=== PATIENT | female | born 1950 | race Caucasian/White ===

== ENCOUNTER 2024-02-25 09:46 | Emergency (ER) | payer MEDICARE, BC, SELFPAY ==
[2024-02-25 09:50] VITALS: BP 128/68; PULSE 60; RESP 16; TEMP 36.2; O2SAT 100; BMI 24.6
--- NOTE | 2024-02-25 10:06 | CT_ITS ---
Patient: LEONIE ANN Facility:?[facility] Patient ID:?[id number] Site Patient ID:?[id number]. Site :?1950 Study:?CT-Abdomen/Pelvis WO-02/25/2024 10:34:39 AM Ordering Physician:EZ Final Report: INDICATION: Injury. Pain. COMPARISON: None TECHNIQUE: CT examination of the abdomen and pelvis was performed without intravenous contrast. Thin section axial images were obtained from the lung bases through the pubic symphysis. Oral contrast was not administered. Please note that all CT scans at this facility use dose modulation, iterative reconstruction, and/or weight-based dosing when appropriate to reduce radiation dose to as low as reasonably achievable. FINDINGS: LUNG BASES: The lung bases are unremarkable.The heart size is normal at the lung bases. Incidental breast implants noted. LIVER/BILIARY SYSTEM:The liver is normal in size and configuration given the lack of intravenous contrast. There is no visible focal mass and there is no intra- or extra hepatic biliary ductal dilatation.The gall bladder appears normal. ADRENALS: Normal non-contrast appearance KIDNEYS, URETERS and BLADDER:Normal size kidneys. No intrarenal calculi. Mildly prominent right ureter but no alyx hydronephrosis. Calcifications in the right flank are probably vascular. The bladder appears normal. SPLEEN:Normal non-contrast appearance. PANCREAS: Fatty infiltrated but otherwise unremarkable RETROPERITONEUM and MESENTERY: There is no mass, adenopathy or aortic aneurysm. Atherosclerotic vascular calcification GASTROINTESTINAL SYSTEM: There is no evidence of diverticulitis, colitis, mechanical obstruction, or appendicitis. The small bowel as visualized appears normal.Mild diffuse fecal retention and scattered diverticulosis PELVIS: No mass, adenopathy or free fluid. OSSEOUS STRUCTURES and ABDOMINAL WALL: There is no acute appearing osseous finding. There are degenerative changes.No significant abdominal wall abnormality. OTHER: No free fluid or free air. IMPRESSION: 1. No solid organ injury and no acute abdominal or pelvic posttraumatic findings within the limitation of noncontrast study. 2. No acute osseous injury. 3. Incidental nonacute/nontraumatic findings as discussed in the body of the report Please note that all CT scans at this facility use dose modulation, iterative reconstruction, and/or weight-based dosing when appropriate to reduce radiation dose to as low as reasonably achievable. Dictated by Cedrick Issa MD @ 02/25/2024 10:49:13 AM Signed by:?Cedrick Issa MD @02/25/2024 10:49:13 AM (Electronic Signature)
--- NOTE | 2024-02-25 10:06 | CT_ITS ---
Patient: LEONIE ANN Facility:?[facility] Patient ID:?[id number] Site Patient ID:?[id number]. Site :?1950 Study:?CT-Facial WO-02/25/2024 10:36:41 AM Ordering Physician:EZ Final Report: INDICATION: Fall TECHNIQUE: CT of the face and paranasal sinuses was performed without IV contrast. COMPARISON: None. FINDINGS: Bones: Normal. Orbits: Normal. Paranasal sinuses: Clear. Mastoid air cells: Clear. Soft tissues: Normal. Visualized brain: Normal. Additional comments: None. IMPRESSION: No acute facial fractures. Please note that all CT scans at this facility use dose modulation, iterative reconstruction, and/or weight-based dosing when appropriate to reduce radiation dose to as low as reasonably achievable. Dictated by Laureano Cox MD @ 02/25/2024 10:52:48 AM Signed by:?Laureano Cox MD @02/25/2024 10:52:48 AM (Electronic Signature)
--- NOTE | 2024-02-25 10:07 | CT_ITS ---
Patient: LEONIE ANN Facility:?[facility] Patient ID:?[id number] Site Patient ID:?[id number]. Site :?1950 Study:?CT-Head WO-02/25/2024 10:36:07 AM Ordering Physician:EZ Final Report: INDICATION: Fall TECHNIQUE: CT of the head was performed without IV contrast. COMPARISON: None. FINDINGS: Parenchyma: No acute hemorrhage, infarction, or mass. Mild scattered periventricular white matter hypoattenuation is nonspecific and is favored to represent chronic small vessel ischemic disease. Ventricles and extra-axial spaces: Appropriate for age. Visualized paranasal sinuses: Clear. Mastoid air cells: Clear. Bones: No focal abnormality. Additional comment: Bilateral lens surgery. IMPRESSION: No acute intracranial abnormality. Please note that all CT scans at this facility use dose modulation, iterative reconstruction, and/or weight-based dosing when appropriate to reduce radiation dose to as low as reasonably achievable. Dictated by Laureano Cox MD @ 02/25/2024 10:47:13 AM Signed by:?Laureano Cxo MD @02/25/2024 10:47:13 AM (Electronic Signature)
--- NOTE | 2024-02-25 10:08 | ED_ITS ---
HPI - General Adult General Chief complaint: Abdominal Pain Stated complaint: fall- 2 days ago Time Seen by Provider: 02/25/24 09:47 History of Present Illness HPI narrative: PATIENT IS A 70-YEAR-OLD FEMALE THAT SHE SLIPPED ON A CHILD'S TOY ABOUT 2 DAYS AGO AND FELL FORWARD ON HER FACE SHE HIT HER FOREHEAD HAD A SMALL BUMP BETWEEN HER BROW SHE HAS NASAL TENDERNESS AND SOME MILD MAXILLARY SINUS DISCOMFORT. SHE HAS HAD NO TROUBLE WITH DENTAL OCCLUSION OR FUNCTION OF HER JAW. SHE HAS NO NECK PAIN. SHE DID NOT LOSE CONSCIOUSNESS OR HAVE VOMITING OR NAUSEA. The patient also reports that when she lies down at night she has significant pain in her epigastrium and seems to radiate through to her back this is only since her fall. She did slightly hyperextends her abdomen and abdominal wall musculature, and certainly could be from that. But is typically worse when she lies down she gets up and walks around she gets this ?spasm? feeling in her abdomen that radiates from her upper right and left quadrants to the middle periumbilical area. She has been able to walk without difficulty no pelvis hip or leg symptoms no upper extremity symptoms. Related Data Home Medications Medication Instructions Recorded Confirmed estradiol 0.01% (0.1 mg/gram) vaginal 02/25/24 vaginal cream levothyroxine 50 mcg tablet 50 mcg PO QAM 02/25/24 02/25/24 minoxidil 2.5 mg tablet 1.25 mg PO DAILY 02/25/24 02/25/24 montelukast 10 mg tablet 10 mg PO DAILY 02/25/24 02/25/24 omeprazole 40 mg capsule,delayed 40 mg PO BID 02/25/24 02/25/24 release rosuvastatin 40 mg tablet 40 mg PO QAM 02/25/24 02/25/24 tirzepatide 10 mg/0.5 mL 10 mg subcut 02/25/24 subcutaneous pen injector (Aman) Allergies Allergy/AdvReac Type Severity Reaction Status Date / Time iodine Allergy Unknown Verified 02/25/24 10:00 Review of Systems Status of ROS: Reports: 6 or more systems reviewed and unremarkable except as noted in History and below PFSH PFSH Social History Smoking Status: Never smoker How often do you have a drink containing alcohol: never How often do you have six or more drinks on one occasion: Never AUDIT-C Alcohol total score: 0 Non-prescribed substance use: denies use Exam Narrative: Exam Narrative: Objective: Patient's vital signs are within normal limits She is alert orient x3 HEENT shows a small bruise between her eyebrows on more right than left-sided on her brow. No palpable step-off in that area Pupils react to light extra movements intact No facial asymmetry Neck is nontender non tender on range of motion, the patient has full range of motion of her cervical spine Chest back abdomen unremarkable to palpation no palpable tenderness no rebound in her abdomen no palpable masses The patient is ambulatory Lower extremities has full range of motion Const: Vital Signs, click to edit/add: Vital Signs - 24 hr 02/25/24 09:50 Temperature 97.1 F L Pulse Rate [Pulse Oximeter] 60 Respiratory Rate 16 Blood Pressure [Ri ght Upper Arm] 128/68 Pulse Oximetry 100 Oxygen Delivery Me thod Room Air Course Vital Signs Vital signs: Initial Vital Signs Temperature 97.1 F L 02/25/24 09:50 Temperature Source Temporal Artery Scan 02/25/24 09:50 Pulse Rate 60 02/25/24 09:50 Respiratory Rate 16 02/25/24 09:50 Blood Pressure 128/68 02/25/24 09:50 Blood Pressure Mean 88 02/25/24 09:50 Blood Pressure Position Sitting 02/25/24 09:50 Pulse Oximetry 100 02/25/24 09:50 Oxygen Delivery Method Room Air 02/25/24 09:50 Vital Signs Temperature 97.1 F L 02/25/24 09:50 Pulse Rate 60 02/25/24 09:50 Respiratory Rate 16 02/25/24 09:50 Blood Pressure 128/68 02/25/24 09:50 Pulse Oximetry 100 02/25/24 09:50 Oxygen Delivery Method Room Air 02/25/24 09:50 Temperature 97.1 F L 02/25/24 09:50 Pulse Rate 60 02/25/24 09:50 Respiratory Rate 16 02/25/24 09:50 Blood Pressure 128/68 02/25/24 09:50 Pulse Oximetry 100 02/25/24 09:50 Oxygen Delivery Method Room Air 02/25/24 09:50 Medications Administered Medications: Discontinued Medications Generic Name Dose Route Start Last Admin Trade Name Freq PRN Reason Stop Dose Admin Sodium Chloride 500 mls @ 500 mls/hr 02/25/24 10:06 02/25/24 11:50 0.9 % Sodium Chloride 500 Ml IV 02/25/24 11:05 Infused .Q1H ONE Infusion Medical Decision Making MDM Narrative Medical decision making narrative: [age] white female who fell 2 days ago with some epigastric spasm, and sats nasal tip bridge tenderness and forehead injury. I think it be reasonable at this point to do a CT scan of her head and facial bones rule out fracture. She has had no loss conscious no vomiting. She does have this unusual epigastric area pain and spasm feeling especially in she lies down at night. She does not describe reflux symptoms. She has not had this prior to the fall. At the be appropriate to rule out intra-abdominal hematoma, rectus strain or hematoma, organ injury, so the patient will get a CT scan without contrast or abdomen pelvis. Will also check labs, started IV, disposition pending findings above. Addendum 11:13 a.m. the patient's head CT is negative as well as her facial bone CT, her abdominal and pelvic CT scan without contrast is negative as well, no evidence of vascular or organ injury. The patient's lab studies look reassuring. I think she can be discharged home. Will discuss with her which she was due for pain management I think it would be reasonable to use Tylenol and Advil for couple of days light activity, ice to her abdominal area and a recheck as needed with regular doctor next 2-3 days. Lab Data Labs: Lab Results 02/25/24 Range/Units 10:15 WBC 6.55 (4.50-11.00) K/uL RBC 3.64 L (4.00-5.20) m/uL Hgb 11.6 L (12.0-16.0) gm/dL Hct 34.0 (33.0-51.0) % MCV 93 (80-100) fL MCH 32 (26-34) pg MCHC 34 (32-36) gm/dL RDW Coeff of Reuben 12.9 (11.5-15.5) % Plt Count 337 (140-440) K/uL Neut % (Auto) 66.7 (42.0-72.0) % Lymph % (Auto) 22.3 (20-44) % [place] % (Auto) 7.5 (0.0-11.0) % Eos % (Auto) 2.7 (0.0-7.0) % Baso % (Auto) 0.8 (0.0-3.0) % Neut # (Auto) 4.37 (1.7-7.0) K/uL Lymph # (Auto) 1.46 (0.90-2.90) K/uL [place] # (Auto) 0.50 (0.00-0.90) K/UL Eos # (Auto) 0.18 (0.00-0.50) K/uL Baso # (Auto) 0.05 (0.00-0.30) K/uL Abs Immat Gran (auto) 0.00 (0.00-0.30) K/uL Imm/Tot Granulo (auto) 0.0 % Sodium 138 (135-149) mmol/L Potassium 3.6 (3.6-5.1) mmol/L Chloride 102 (96-114) mmol/L Carbon Dioxide 28 (20-32) mmol/L Anion Gap 8 (7-15) mEq/L BUN 8 (7-30) mg/dL Creatinine 0.7 (0.5-1.5) mg/dL Estimated Creat Clear 45.09 Estimated GFR 91 ml/min Glucose 85 (60-115) mg/dL Calcium 9.6 (8.4-10.6) mg/dL Total Bilirubin 0.8 (0.1-1.5) mg/dL Direct Bilirubin 0.1 (0.0-0.5) mg/dL AST 29 (12-35) U/L ALT 21 (4-35) U/L Alkaline Phosphatase 76 (40-150) U/L C-Reactive Protein < 0.5 L (0.5-1.0) mg/dL Total Protein 7.5 (6.0-8.3) g/dL Albumin 4.4 (3.3-5.0) g/dL Amylase 60 (18-89) U/L Discharge Plan Discharge Clinical Impression: Closed head injury, Abdominal pain, Fall Patient Disposition: Home w/ Parent or Adult Condition: Stable Additional Instructions: Light activity, Tylenol and Advil as needed, ice to the abdominal wall as needed for 5-10 minutes 3 times a day for few days, follow up with regular doctor in next 2-3 days, return to the ED problems or concerns. Activity Level: Light activity Discharge Diet: Regular Prescriptions: No Action omeprazole 40 mg capsule,delayed release(DR/EC) 40 mg PO BID minoxidil 2.5 mg tablet 1.25 mg PO DAILY levothyroxine 50 mcg tablet 50 mcg PO QAM montelukast 10 mg tablet 10 mg PO DAILY estradiol 0.01 % (0.1 mg/gram) cream vaginal rosuvastatin 40 mg tablet 40 mg PO QAM Mounjaro 10 mg/0.5 mL pen injector 10 mg subcut Stand Alone Forms: My[employer] Info Instructions
[2024-02-25 10:23] LABS: Basophils Absolute Auto 0.05 K/uL (0.00-0.30); Basophils Percent Auto 0.8 % (0.0-3.0); Eosinophils Absolute Auto 0.18 K/uL (0.00-0.50); Eosinophils Percent Auto 2.7 % (0.0-7.0); Hemoglobin* 11.6 gm/dL (12.0-16.0); Lymphocytes Absolute Auto 1.46 K/uL (0.90-2.90); Lymphocytes Percent Auto 22.3 % (20-44); Mean Corpuscular HGB Conc 34 gm/dL (32-36); Mean Corpuscular Hemoglobin 32 pg (26-34); Mean Corpuscular Volume 93 fL (80-100); Monocytes Percent Auto 7.5 % (0.0-11.0); Neutrophils Absolute Auto 4.37 K/uL (1.7-7.0); Neutrophils Percent Auto 66.7 % (42.0-72.0); Platelet Count* 337 K/uL (140-440); RDW Coefficient of Variation % 12.9 % (11.5-15.5); Red Blood Count 3.64 m/uL (4.00-5.20); White Blood Count* 6.55 K/uL (4.50-11.00)
[2024-02-25 10:25] LABS: Slide Review Reflex No
[2024-02-25] MEDS: 0.9 % SODIUM CHLORIDE 500 ML 500 ML IV (10:40)
[2024-02-25 10:47] LABS: Albumin* 4.4 g/dL (3.3-5.0); Chloride* 102 mmol/L (96-114); Sodium* 138 mmol/L (135-149)
[2024-02-25 10:48] LABS: Potassium* 3.6 mmol/L (3.6-5.1)
[2024-02-25 10:49] LABS: Amylase* 60 U/L (18-89); Creatinine* 0.7 mg/dL (0.5-1.5); Est. Creatinine Clearance* 45.09; Estimated Glomerular Filt Rate 91 ml/min
[2024-02-25 10:50] LABS: Alanine Aminotransferase* 21 U/L (4-35); Alkaline Phosphatase* 76 U/L (40-150); Anion Gap 8 mEq/L (7-15); Aspartate Amino Transferase* 29 U/L (12-35); Bilirubin Direct* 0.1 mg/dL (0.0-0.5); Bilirubin Total* 0.8 mg/dL (0.1-1.5); Blood Urea Nitrogen* 8 mg/dL (7-30); Carbon Dioxide* 28 mmol/L (20-32); Glucose* 85 mg/dL (60-115); Total Protein* 7.5 g/dL (6.0-8.3)
[2024-02-25 10:51] LABS: Calcium* 9.6 mg/dL (8.4-10.6)
[2024-02-25 10:54] LABS: C Reactive Protein* < 0.5 mg/dL (0.5-1.0)
== END 2024-02-25 11:35 | disposition home or self-care (01) ==
PROVIDERS: Emergency Provider Family Medicine
DX: S09.90XA Unspecified injury of head, initial encounter (principal); R10.9 Unspecified abdominal pain
CPT/HCPCS: 36415; 70450; 70486; 74176; 80048; 80076; 82150; 85025; 86140; 99283; 99284; J7030

== ENCOUNTER 2024-11-18 08:26 | Emergency (ER) | payer MEDICARE, BC, SELFPAY ==
[2024-11-18 08:28] VITALS: BP 113/66; PULSE 87; RESP 18; TEMP 36.7; O2SAT 97; BMI 24.6
--- NOTE | 2024-11-18 08:51 | CRLHL7_ITS ---
For Patients: As a result of the Cures Act, medical imaging exams and procedure reports are released immediately into your electronic medical record. You may view this report before your referring provider. If you have questions, please contact your health care provider. Indication: Chills and night sweats Comparison: Two-view chest July 09, 2019 Technique: PA and lateral views of the chest Findings: There is hyperinflation and chronic interstitial change with developing airspace opacity within the right upper lobe. The left hemithorax is clear. The cardiac silhouette is mildly prominent. The bony thorax is grossly intact. Impression: Mild chronic interstitial changes with moderate airspace opacity in the right upper lobe consistent with developing infiltrate. Dictated by Esteban Silva MD @ 11/18/2024 9:19:36 AM (Electronically Signed)
--- NOTE | 2024-11-18 08:52 | ED.GENADULT ---
HPI - General Adult General Date Seen: 11/18/24 Chief complaint: Dizziness/Vertigo Stated complaint: weakness Time Seen by Provider: 11/18/24 08:30 Source: patient Mode of arrival: ambulatory Limitations: no limitations History of Present Illness HPI narrative: Patient is a 74-year-old female history of familial high cholesterol, diabetes presenting to the emergency department for weakness and night sweats. She states last night she woke up and was feeling very cold. She went to the bathroom and when she returned she was feeling very weak and was struggling to get back into bed. She continue to review very sweaty cold or also night. She states when she woke up her hair was drenched in sweat. [place] very weak to walk when she woke up this morning and her had to help her to the bathroom. The weakness and chills have improved. She states last night she is also feeling very dizzy and lightheaded. She continued to feel lightheaded well speaking to her. Was not initially having dizziness while speaking to her but by the end of our conversation she states she was feeling woozy as if she is on a boat. Is feeling nauseated but has not vomited. Has never had any chest pain or shortness of breath throat this time. Denies dysuria, urinary tension, constipation, diarrhea, abdominal pain, headache, vision changes. Denies having symptoms like this before. She states she has familial high cholesterol and for the most part has is well controlled. Most people in her family have had heart attacks or strokes due to it but she has not had either yet. Does states she has some coronary artery disease. Related Data Home Medications ?Medication ?Instructions ?Recorded ?Confirmed levothyroxine 50 mcg tablet 50 mcg PO QAM 02/25/24 11/18/24 minoxidil 2.5 mg tablet 1.25 mg PO DAILY 02/25/24 11/18/24 omeprazole 40 mg capsule,delayed 40 mg PO BID 02/25/24 11/18/24 release rosuvastatin 40 mg tablet 40 mg PO QAM 02/25/24 11/18/24 tirzepatide 10 mg/0.5 mL 10 mg subcut 02/25/24 subcutaneous pen injector (Aman) Previous Rx's ?Medication ?Instructions ?Recorded azithromycin 250 mg tablet 250 mg PO DAILY 4 days #4 tabs 11/18/24 Allergies Allergy/AdvReac Type Severity Reaction Status Date / Time iodine Allergy Unknown Verified 11/18/24 08:38 Review of Systems Status of ROS: Reports: 10 or more systems reviewed and unremarkable except as noted in History and below [facility] Social History Smoking Status: Never smoker How often do you have a drink containing alcohol: never How often do you have six or more drinks on one occasion: Never AUDIT-C Alcohol total score: 0 Non-prescribed substance use: denies use service: No Exam Narrative: Exam Narrative: Const: Well-nourished, Well-developed, in mild distress Eyes: PERRL, no conjunctival injection, and symmetrical lids HENT: Atraumatic external nose and ears. Moist mucous membranes. Neck: Symmetric, trachea midline, No thyromegaly. CVS: RRR, No murmurs or gallops. Peripheral pulses 2+ and equal in all extremities RESP: Unlabored respiratory effort. Clear to auscultation bilaterally. GI: Nontender/Nondistended, No rebound or guarding. MSK:Extremities w/o deformity, Normal Active ROM Skin: Warm, Dry. No rashes or lesions. Neuro: Normal Muscle tone, No focal neurological deficits. Psych: Awake, Alert, & Oriented x3. Appropriate mood and affect. Const: Vital Signs, click to edit/add: Vital Signs - 24 hr 11/18/24 08:28 11/18/24 10:58 11/18/24 11:00 Temperature 98.0 F Pulse Rate 78 77 Pulse Rate [Right Pulse Oximeter] 87 Respiratory Rate 18 Blood Pressure Blood Pressure [Ri ght Upper Arm] 113/66 Pulse Oximetry 97 97 98 Oxygen Delivery Me thod Room Air 11/18/24 11:08 Temperature Pulse Rate 79 Pulse Rate [Right Pulse Oximeter] Respiratory Rate Blood Pressure 100/50 L Blood Pressure [Ri ght Upper Arm] Pulse Oximetry 98 Oxygen Delivery Me thod Course Vital Signs Vital signs: Initial Vital Signs Temperature 98.0 F 11/18/24 08:28 Temperature Source Temporal Artery Scan 11/18/24 08:28 Pulse Rate 87 11/18/24 08:28 Pulse Rhythm Regular 11/18/24 08:28 Pulse Strength 3+ Normal 11/18/24 08:28 Respiratory Rate 18 11/18/24 08:28 Blood Pressure 113/66 11/18/24 08:28 Blood Pressure Mean 81 11/18/24 08:28 Blood Pressure Position Sitting 11/18/24 08:28 Pulse Oximetry 97 11/18/24 08:28 Oxygen Delivery Method Room Air 11/18/24 08:28 Vital Signs Temperature 98.0 F 11/18/24 08:28 Pulse Rate 87 11/18/24 08:28 Respiratory Rate 18 11/18/24 08:28 Blood Pressure 113/66 11/18/24 08:28 Pulse Oximetry 97 11/18/24 08:28 Oxygen Delivery Method Room Air 11/18/24 08:28 Temperature 98.0 F 11/18/24 08:28 Pulse Rate 79 11/18/24 11:08 Respiratory Rate 18 11/18/24 08:28 Blood Pressure 100/50 L 11/18/24 11:08 Pulse Oximetry 98 11/18/24 11:08 Oxygen Delivery Method Room Air 11/18/24 08:28 Medications Administered Medications: Discontinued Medications Generic Name Dose Route Start Last Admin Trade Name Freq PRN Reason Stop Dose Admin Azithromycin 500 mg 11/18/24 10:55 11/18/24 11:10 Azithromycin 250 Mg Tablet PO 11/18/24 10:56 500 mg ONCE ONE Administration Sodium Chloride 1,000 mls @ 1,000 mls/hr 11/18/24 09:00 11/18/24 11:10 0.9 % Sodium Chloride 1000 Ml IV 11/18/24 09:59 0 mls/hr .Q1H KWAME Infusion Ondansetron HCl 4 mg 11/18/24 08:51 11/18/24 09:10 Ondansetron 2 Mg/Ml Inj IVP 11/18/24 08:52 4 mg ONCE ONE Administration Medical Decision Making MDM Narrative Medical decision making narrative: Patient is a 74-year-old female presenting to the emergency department for multiple complaints. The differential diagnosis of generalized weakness is broad and includes infection, electrolyte abnormalities, ACS, arrhythmia, hypoglycemia, electrolyte abnormality, respiratory failure, anemia, hypothyroidism, dehydration, medication induced etc. along with having some dizziness there would be concern for stroke versus some other intracranial abnormality. Concerned the dizziness has improved significantly over the since this morning these do seem less likely. I will order CBC, BMP, chest x-ray, EKG, troponin, urinalysis for better evaluation. Will also give her Zofran for nausea and a L of fluids for possible dehydration. Patient does chest x-ray returned reviewed by myself and the radiologist showing signs concerning no pneumonia. S her lab work shows no concerning findings other than elevated white blood cell count that is neutrophil predominant. This is consistent with chest x-ray showing pneumonia. Viral swab negative. EKG and troponin showed no concerning abnormalities. Do not believe repeat troponin is necessary as likely source of the symptoms are pneumonia and symptoms started early this morning. She is in the low risk group for curb 65 score and the outpatient treatment is reasonable. On my review vital signs are stable throughout time in in the emergency department. Oximetry stayed in the mid to high 90s. 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 Considering increase his and mycoplasma pneumonia and the area will start her on azithromycin. She is agreeable to this plan. 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 Lab Data Labs: Lab Results 11/18/24 Range/Units 09:12 WBC 17.58 H (4.50-11.00) K/uL RBC 3.65 L (4.00-5.20) m/uL Hgb 11.9 L (12.0-16.0) gm/dL Hct 34.2 (33.0-51.0) % MCV 94 (80-100) fL MCH 33 (26-34) pg MCHC 35 (32-36) gm/dL RDW Coeff of Reuben 13.2 (11.5-15.5) % Plt Count 308 (140-440) K/uL Neut % (Auto) 89.3 H (42.0-72.0) % Lymph % (Auto) 3.6 L (20-44) % [place] % (Auto) 6.3 (0.0-11.0) % Eos % (Auto) 0.3 (0.0-7.0) % Baso % (Auto) 0.2 (0.0-3.0) % Neut # (Auto) 15.70 H (1.7-7.0) K/uL Lymph # (Auto) 0.60 L (0.90-2.90) K/uL [place] # (Auto) 1.10 H (0.00-0.90) K/UL Eos # (Auto) 0.10 (0.00-0.50) K/uL Baso # (Auto) 0.00 (0.00-0.30) K/uL Abs Immat Gran (auto) 0.10 (0.00-0.30) K/uL Imm/Tot Granulo (auto) 0.3 % Sodium 135 (135-149) mmol/L Potassium 3.7 (3.6-5.1) mmol/L Chloride 100 (96-114) mmol/L Carbon Dioxide 29 (20-32) mmol/L Anion Gap 6 L (7-15) mEq/L BUN 13 (7-30) mg/dL Creatinine 0.7 (0.5-1.5) mg/dL Estimated Creat Clear 44.41 Estimated GFR 91 ml/min Glucose 116 H (60-115) mg/dL Calcium 9.6 (8.4-10.6) mg/dL SARS-CoV-2 (PCR) Negative SARS-CoV-2 (Negative) Influenza Type A (PCR) Negative PCR FLU A (Negative) Influenza Type B (PCR) Negative PCR FLU B (Negative) RSV (PCR) Negative PCR RSV (Negative) POC Troponin I 0.00 L (0.01-0.04) ng/ml Imaging Data Chest x-ray: Attestation: I have reviewed the pertinent imaging results. Radiologist's impression: Mild chronic interstitial changes with moderate airspace opacity in the right upper lobe consistent with developing infiltrate. Dictated by Esteban Silva MD @ 11/18/2024 9:19:36 AM ECG Data Attestation: I personally reviewed and interpreted this ECG as follows: Prior ECG tracings: not available for review Interpretation: Normal sinus rhythm with a rate of 76 beats per minute, normal intervals, normal axis, no ST or T-wave abnormalities. Discharge Plan Discharge Clinical Impression: Pneumonia Qualifiers: Pneumonia type: due to unspecified organism Laterality: right Lung location: upper lobe of lung Qualified Code(s): J18.9 - Pneumonia, unspecified organism Patient Disposition: Home, Self-Care Condition: Stable Instructions: Community Acquired Pneumonia (DC) Additional Instructions: Follow-up with the primary care provider early next week to make sure there is resolution of symptoms and for possible repeat blood work. Return to emergency department for new or worsening symptoms. I gave you the 1st dose of years with her my seen here in the emergency department. Start the rest of the prescription tomorrow. Prescriptions: New azithromycin 250 mg tablet 250 mg PO DAILY 4 Days Qty: 4 0RF Rx Instructions: start on day 2 of therapy No Action omeprazole 40 mg capsule,delayed release(DR/EC) 40 mg PO BID minoxidil 2.5 mg tablet 1.25 mg PO DAILY levothyroxine 50 mcg tablet 50 mcg PO QAM rosuvastatin 40 mg tablet 40 mg PO QAM Mounjaro 10 mg/0.5 mL pen injector 10 mg subcut Follow Up/Referrals: Provider,Not a Local [Primary Care Provider] - Stand Alone Forms: [employer] Info Instructions
[2024-11-18] MEDS: 0.9 % SODIUM CHLORIDE 1000 ml 1,000 ML IV (09:10)
[2024-11-18] MEDS: ONDANSETRON 2 MG/ML inj 4 MG IVP (09:10)
[2024-11-18 09:40] LABS: Chloride* 100 mmol/L (96-114)
[2024-11-18 09:41] LABS: Potassium* 3.7 mmol/L (3.6-5.1); Sodium* 135 mmol/L (135-149)
[2024-11-18 09:44] LABS: Anion Gap 6 mEq/L (7-15); Blood Urea Nitrogen* 13 mg/dL (7-30); Calcium* 9.6 mg/dL (8.4-10.6); Carbon Dioxide* 29 mmol/L (20-32); Creatinine* 0.7 mg/dL (0.5-1.5); Est. Creatinine Clearance* 44.41; Estimated Glomerular Filt Rate 91 ml/min; Glucose* 116 mg/dL (60-115)
[2024-11-18 10:16] LABS: Basophils Percent Auto 0.2 % (0.0-3.0); Eosinophils Percent Auto 0.3 % (0.0-7.0); Hematocrit 34.2 % (33.0-51.0); Hemoglobin* 11.9 gm/dL (12.0-16.0); Immature Granulocytes Pct Auto 0.3 %; Lymphocytes Percent Auto 3.6 % (20-44); Mean Corpuscular HGB Conc 35 gm/dL (32-36); Mean Corpuscular Hemoglobin 33 pg (26-34); Mean Corpuscular Volume 94 fL (80-100); Monocytes Percent Auto 6.3 % (0.0-11.0); Neutrophils Percent Auto 89.3 % (42.0-72.0); PCR FLU A Negative PCR FLU A (Negative); PCR FLU B Negative PCR FLU B (Negative); PCR RSV Negative PCR RSV (Negative); Platelet Count* 308 K/uL (140-440); RDW Coefficient of Variation % 13.2 % (11.5-15.5); Red Blood Count 3.65 m/uL (4.00-5.20); SARS PCR* Negative SARS-CoV-2 (Negative); White Blood Count* 17.58 K/uL (4.50-11.00)
[2024-11-18 10:29] LABS: Slide Review Reflex No
[2024-11-18 10:58] VITALS: PULSE 78; O2SAT 97
[2024-11-18 11:00] VITALS: PULSE 77; O2SAT 98
[2024-11-18 11:08] VITALS: BP 100/50; PULSE 79; O2SAT 98
[2024-11-18] MEDS: AZITHROMYCIN 250 MG TABLET 500 MG PO (11:10)
== END 2024-11-18 11:26 | disposition home or self-care (01) ==
PROVIDERS: Emergency Provider Student in an Organized Health Care Education/Training Program
DX: J18.9 Pneumonia, unspecified organism (principal)
CPT/HCPCS: 36415; 71046; 80048; 81001; 84484; 85025; 87631; 93005; 96361; 96374; 99284; 99285; A9270; J2405; J7030